=== PATIENT | male | born 1995 | race Caucasian/White ===

== ENCOUNTER 2017-12-08 16:13 | Emergency (ER) | payer BC ==
[~2017-12-08] VITALS: Ht 175.3 cm; Wt 76.7 kg
[2017-12-08 16:19] VITALS: Ht 175.3 cm; Wt 76.7 kg
[2017-12-08 17:27] VITALS: BP 132/78
== END 2017-12-08 17:27 | disposition home or self-care (01) ==
LOC: ED 16:13
DX: L60.0 Ingrowing nail (principal)
CPT/HCPCS: J2001